=== PATIENT | male | born 1985 | race African-American/Black ===

== ENCOUNTER 2024-01-19 01:36 | Emergency (ER) | payer OTHER ==
[~2024-01-19] VITALS: Ht 190.5 cm; Wt 90.7 kg
[2024-01-19 01:59] VITALS: BP 118/73; PULSE 94; RESP 16; TEMP 96.6; O2SAT 99
[2024-01-19 03:20] VITALS: BP 118/73; PULSE 94; RESP 16; TEMP 96.6; O2SAT 99
[2024-01-19] MEDS ORDERED: NAPR-337 PO (03:20)
[2024-01-19] MEDS ORDERED: SULF-59 PO (03:20)
== END 2024-01-19 03:20 | disposition home or self-care (01) ==
LOC: MED 01:36
DX: L02.11 Cutaneous abscess of neck (principal); Z79.899 Other long term (current) drug therapy
CPT/HCPCS: 99283